=== PATIENT | male | born 1955 | race African-American/Black ===

== ENCOUNTER 2018-01-29 17:32 | Emergency (ER) | payer MEDICARE ==
[~2018-01-29] VITALS: Ht 167.6 cm; Wt 77.0 kg
[~2018-01-29 17:32] MED LIST: ASPIRIN 81 MG; CINACALCET 30 MG; CLONIDINE 0.2 MG; GLIP5TAB12; LISINOPRIL 40 MG; METOPROLOL 50 MG; MINOXIDIL 2.5 MG; RENAL; SEVELAMER CARBONATE 800 MG
[2018-01-29] MEDS ORDERED: HYDROCODONE/ACETAMINOPHEN 5/325MG TABLET PO ONE (18:15)
[2018-01-29] MEDS ORDERED: CEFTRIAXONE SODIUM 250 MG/VIAL IM ONE (18:15)
[2018-01-29] MEDS ORDERED: AZITHROMYCIN 500 MG TABLET PO ONE (18:15)
[2018-01-29] MEDS ORDERED: IBUPROFEN 800MG TABLET PO ONE (18:15)
[2018-01-29] MEDS ORDERED: LIDOCAINE HCL 1% 20ML VIAL (Pyxis) INJ INFIL ONE (18:30)
[2018-01-29] MEDS ORDERED: LIDOCAINE HCL/PF 1% 10 MG/ML 5ML VIAL IJ ONE (18:45)
[2018-01-29 21:31] VITALS: BP 122/65
== END 2018-01-29 21:44 | disposition home or self-care (01) ==
LOC: ER 17:32
DX: N45.1 Epididymitis (principal); N45.2 Orchitis; N43.3 Hydrocele, unspecified; E11.22 Type 2 diabetes mellitus with diabetic chronic kidney disease; I12.0 Hypertensive chronic kidney disease with stage 5 chronic kidney disease or end stage renal disease; N18.6 End stage renal disease; Z99.2 Dependence on renal dialysis
CPT/HCPCS: 76870; 93976; 96372; 99284; J0696; J3490

== ENCOUNTER → 2019-02-18 | Outpatient (CLI) | payer MEDICARE, OTHER | END | disposition home or self-care (01) | LOC: RAD 12:37 | DX: M25.521 Pain in right elbow (principal); R60.9 Edema, unspecified | CPT/HCPCS: 73080 ==

== ENCOUNTER 2021-12-16 17:10 | Inpatient (IN) | payer MEDICARE, OTHER ==
[~2021-12-16] VITALS: Ht 167.6 cm; Wt 69.4 kg
[2021-12-16] MEDS: CLONIDINE 0.2MG TABLET PO SCH (01:25)
[~2021-12-16 17:10] MED LIST changes: -ASPIRIN 81 MG; +ASPIRIN 81 MG PO; -CINACALCET 30 MG; +CINACALCET 30 MG PO; -CLONIDINE 0.2 MG; +CLONIDINE 0.2 MG PO; -GLIP5TAB12; +GLIP5TAB12 PO; -LISINOPRIL 40 MG; +LISINOPRIL 40 MG PO; -METOPROLOL 50 MG; +METOPROLOL 50 MG PO; -MINOXIDIL 2.5 MG; +MINOXIDIL 2.5 MG PO; -RENAL; -SEVELAMER CARBONATE 800 MG; +SEVELAMER CARBONATE 800 MG PO
[2021-12-16] MEDS ORDERED: HYDRALAZINE 20MG/ML VIAL IV ONE (18:00)
[2021-12-16] MEDS ORDERED: FUROSEMIDE 40MG/4ML VIAL IV ONE (18:00)
[2021-12-16] MEDS ORDERED: NITROGLYCERIN OINT 1GM/INCH UDPKT TD ONE (18:00)
[2021-12-16 18:26] LABS: BG BASE EXCESS 8.1 mmol/L (-2.0-2.0); BG CARBOXYHEMOGLOBIN 0.9 % (0.5-1.5); BG FRACTION INSPIRED OXYGEN 40; BG HCO3 ACT 31.6 mmol/L (22.0-26.0); BG OXYHEMOGLOBIN 97.1 % (94.0-97.0); BG PCO2 39.8 mmHg (35.0-45.0); BG PH 7.518 (7.350-7.450); BG PO2 109.3 mmHg (75.0-100.0); BG SAMPLE SITE RIGHT RADIAL; BG TOTAL HEMOGLOBIN 9.1 g/dL (12.0-18.0); BG VENT MODE NASAL CANNULA
[2021-12-16 18:41] LABS: HEMATOCRIT. 25.5 % (42.0-52.0); HEMOGLOBIN. 8.5 g/dL (14.0-18.0); MEAN CORPUSCULAR HEMOGLOBIN 27.4 pg (28.0-32.0); MEAN CORPUSCULAR VOLUME 81.9 fL (80.0-94.0); MEAN PLATELET VOLUME 9.7 fl (7.4-10.4); PLATELET 174 x1000/uL (130-400); RED BLOOD CELL COUNT 3.11 mill/uL (4.7-6.1); RED CELL DISTRIBUTION WIDTH 16.8 % (11.6-14.6)
[2021-12-16 18:53] LABS: CHLORIDE 98 mEq/L (98-107)
[2021-12-16 18:57] LABS: PLATELET ESTIMATE NORMAL
[2021-12-16] MEDS ORDERED: ACETAMINOPHEN 325MG TABLET PO PRN (19:00)
[2021-12-16] MEDS ORDERED: IPRATROPIUM/ALBUTEROL 0.5-3(2.5)MG/3ML NEB NEB PRN (19:00)
[2021-12-16] MEDS ORDERED: METHYLPREDNISOLONE SOD SUCC 125 MG/2 ML VIAL IV SCH (19:00)
[2021-12-16] MEDS ORDERED: ONDANSETRON HCL 4MG/2ML INJ IV PRN (19:00)
[2021-12-16] MEDS ORDERED: MORPHINE SULFATE 2 MG/ML CPJ (NOT FOR IM USE) IV PRN (19:00)
[2021-12-16] MEDS ORDERED: NALOXONE HCL 0.4MG/ML VIAL IV PRN (19:15)
[2021-12-16 19:48] LABS: HEPATITIS B SURFACE ANTIGEN NEGATIVE
[2021-12-16] MEDS: METOPROLOL TARTRATE 25MG TABLET PO SCH (20:10)
[2021-12-16] MEDS: METHYLPREDNISOLONE SOD SUCC 125 MG/2 ML VIAL IV SCH (20:11)
[2021-12-16] MEDS: MINOXIDIL 2.5MG TABLET PO SCH (20:34)
[2021-12-16] MEDS: LISINOPRIL 40MG TABLET PO SCH (20:43)
[2021-12-16] MEDS ORDERED: CEFTRIAXONE 1 G PREMIX 50 ML IV NR (22:00)
[2021-12-17] VITALS (9 sets, daily range): BP systolic 132–192; BP diastolic 56–100
[2021-12-17] MEDS: METHYLPREDNISOLONE SOD SUCC 125 MG/2 ML VIAL IV SCH ×2 (03:42→08:51)
[2021-12-17 05:33] LABS: HEMATOCRIT. 28.4 % (42.0-52.0); HEMOGLOBIN. 9.4 g/dL (14.0-18.0); MEAN CORPUSCULAR HEMOGLOBIN 27.1 pg (28.0-32.0); MEAN CORPUSCULAR VOLUME 82.4 fL (80.0-94.0); MEAN PLATELET VOLUME 10.4 fl (7.4-10.4); PLATELET 180 x1000/uL (130-400); RED BLOOD CELL COUNT 3.45 mill/uL (4.7-6.1)
[2021-12-17] MEDS: CLONIDINE 0.2MG TABLET PO SCH ×3 (06:00→21:24)
[2021-12-17] MEDS: CLONIDINE 0.1MG TABLET PO PRN ×3 (06:22→13:57)
[2021-12-17 08:46] LABS: BG BASE EXCESS 1.7 mmol/L (-2.0-2.0); BG CARBOXYHEMOGLOBIN 0.3 % (0.5-1.5); BG DEOXYHEMOGLOBIN 1.5 % (0.0-5.0); BG FRACTION INSPIRED OXYGEN 50; BG HCO3 ACT 25.3 mmol/L (22.0-26.0); BG METHEMOGLOBIN 0.3 % (0.0-1.5); BG OXYGEN SATURATION 98.5 % (92.0-98.5); BG OXYHEMOGLOBIN 97.9 % (94.0-97.0); BG PCO2 35.7 mmHg (35.0-45.0); BG PH 7.468 (7.350-7.450); BG PO2 116.4 mmHg (75.0-100.0); BG SAMPLE SITE RIGHT RADIAL; BG TOTAL HEMOGLOBIN 9.8 g/dL (12.0-18.0); BG VENT MODE MASK - SIMPLE
[2021-12-17] MEDS: FOLIC ACID/VITAMIN B COMP W-C TABLET PO SCH (08:51)
[2021-12-17] MEDS: LISINOPRIL 40MG TABLET PO SCH ×2 (08:51→17:23)
[2021-12-17] MEDS: SEVELAMER CARBONATE 800 MG TABLET PO SCH ×3 (08:51→17:23)
[2021-12-17] MEDS: GLIPIZIDE 5MG TABLET PO SCH (08:52)
[2021-12-17] MEDS: CINACALCET HCL 60MG TABLET PO SCH (08:52)
[2021-12-17] MEDS: METOPROLOL TARTRATE 25MG TABLET PO SCH ×2 (08:52→21:23)
[2021-12-17] MEDS: MINOXIDIL 2.5MG TABLET PO SCH ×2 (08:53→21:23)
[2021-12-17 09:12] LABS: PLATELET ESTIMATE NORMAL
[2021-12-17] MEDS ORDERED: HYDRALAZINE 20MG/ML VIAL IV PRN (10:15)
[2021-12-17 12:13] LABS: T4 FREE 1.29 ng/dL (0.76-1.46)
[2021-12-17] MEDS ORDERED: METHYLPREDNISOLONE SOD SUCC 125 MG/2 ML VIAL IV SCH (18:00)
[2021-12-17] MEDS: HYDRALAZINE HCL 25MG TABLET PO SCH (21:23)
[2021-12-17] MEDS: CEFTRIAXONE 1,000 MG in DEXTROSE 5% WATER 50 ML IV SCH (21:24)
[2021-12-17 23:22] LABS: CREATINE KINASE MB FRACTION 2.2 ng/mL (0.5-3.6)
[2021-12-18] VITALS (12 sets, daily range): BP systolic 108–176; BP diastolic 51–91
[2021-12-18] MEDS: CLONIDINE 0.2MG TABLET PO SCH ×3 (05:11→22:05)
[2021-12-18 05:23] LABS: BASOPHILS % 0.2 % (0.0-2.0); HEMATOCRIT. 24.3 % (42.0-52.0); HEMOGLOBIN. 7.9 g/dL (14.0-18.0); LYMPHOCYTES % 8.4 % (20.0-50.0); MEAN CORPUSCULAR HEMOGLOBIN 26.4 pg (28.0-32.0); MEAN CORPUSCULAR VOLUME 80.9 fL (80.0-94.0); MEAN PLATELET VOLUME 10.9 fl (7.4-10.4); MONOCYTES % 7.6 % (2.0-8.0); NEUTROPHILS % 83.8 % (40.0-76.0); PLATELET 166 x1000/uL (130-400); RED CELL DISTRIBUTION WIDTH 16.8 % (11.6-14.6)
[2021-12-18 06:14] LABS: CREATINE KINASE MB FRACTION 1.6 ng/mL (0.5-3.6)
[2021-12-18] MEDS: SEVELAMER CARBONATE 800 MG TABLET PO SCH ×3 (08:53→17:56)
[2021-12-18] MEDS: CINACALCET HCL 60MG TABLET PO SCH (08:54)
[2021-12-18] MEDS: MINOXIDIL 2.5MG TABLET PO SCH ×3 (08:58→22:07)
[2021-12-18] MEDS: METOPROLOL TARTRATE 25MG TABLET PO SCH ×2 (08:58→22:06)
[2021-12-18] MEDS: HYDRALAZINE HCL 25MG TABLET PO SCH ×3 (08:58→22:06)
[2021-12-18] MEDS: LISINOPRIL 40MG TABLET PO SCH ×2 (08:59→17:00)
[2021-12-18] MEDS: FOLIC ACID/VITAMIN B COMP W-C TABLET PO SCH (09:03)
[2021-12-18] MEDS: GLIPIZIDE 5MG TABLET PO SCH (09:03)
[2021-12-18] MEDS ORDERED: IOHEXOL-350 100 ML BOTTLE ONE (10:14)
[2021-12-18] MEDS ORDERED: EPOETIN ALFA-EPBX 10,000 UNIT/ML VIAL SUBCUT SCH (21:00)
[2021-12-18] MEDS: CEFTRIAXONE 1,000 MG in DEXTROSE 5% WATER 50 ML IV SCH (22:04)
[2021-12-19] VITALS (16 sets, daily range): BP systolic 103–149; BP diastolic 43–77
[2021-12-19] MEDS: CLONIDINE 0.2MG TABLET PO SCH (05:51)
[2021-12-19] MEDS ORDERED: LIDOCAINE HCL 1% 20ML VIAL (Pyxis) INJ ONE (06:35)
[2021-12-19] MEDS ORDERED: MIDAZOLAM HCL 2 MG/2 ML VIAL ONE (06:35)
[2021-12-19] MEDS ORDERED: FENTANYL CITRATE/PF 50MCG/ML 2ML VIAL ONE (06:35)
[2021-12-19] MEDS ORDERED: IODIXANOL 320MG/ML 100 ML BOTTLE IV ONE (06:35)
[2021-12-19] MEDS ORDERED: NICARDIPINE 100MCG/ML 10ML VIAL (CATH LAB) IV ONE (08:27)
[2021-12-19] MEDS ORDERED: NITROGLYCERIN 50MCG/ML 10ML VIAL (CATH LAB) IV ONE (08:27)
[2021-12-19] MEDS: HYDRALAZINE HCL 25MG TABLET PO SCH (08:54)
[2021-12-19] MEDS: CINACALCET HCL 60MG TABLET PO SCH (08:54)
[2021-12-19] MEDS: SEVELAMER CARBONATE 800 MG TABLET PO SCH ×2 (08:54→13:42)
[2021-12-19] MEDS: METOPROLOL TARTRATE 25MG TABLET PO SCH (08:55)
[2021-12-19] MEDS: GLIPIZIDE 5MG TABLET PO SCH (08:55)
[2021-12-19] MEDS: FOLIC ACID/VITAMIN B COMP W-C TABLET PO SCH (08:55)
[2021-12-19] MEDS: LISINOPRIL 40MG TABLET PO SCH (08:57)
[2021-12-19] MEDS: MINOXIDIL 2.5MG TABLET PO SCH (09:01)
[2021-12-19 13:17] LABS: HEMATOCRIT 29.1 % (42.0-52.0); HEMOGLOBIN 9.7 g/dL (14.0-18.0)
== END 2021-12-19 16:40 | disposition home or self-care (01) | DRG 189 ==
LOC: ER 17:10 → MICUSO 20:51 → EDBEDREQ 20:54 → EDBEDREQTM 20:54 → ENRESERV 22:39 → CANRESERV 22:41 → ENRESERV 22:41 → 5EST 12-17 03:08
PROVIDERS: ADMIT Internal Medicine Nephrology; ATTEND Internal Medicine Nephrology
PROC: 5A1D70Z Performance of Urinary Filtration, Intermittent, Less than 6 Hours Per Day (ICD-10-PCS; 2021-12-16)
PROC: 5A09357 Assistance with Respiratory Ventilation, Less than 24 Consecutive Hours, Continuous Positive Airway Pressure (ICD-10-PCS; 2021-12-16)
PROC: 5A1D70Z Performance of Urinary Filtration, Intermittent, Less than 6 Hours Per Day (ICD-10-PCS; 2021-12-18)
PROC: 4A023N7 Measurement of Cardiac Sampling and Pressure, Left Heart, Percutaneous Approach (ICD-10-PCS; principal; 2021-12-19)
PROC: B2111ZZ Fluoroscopy of Multiple Coronary Arteries using Low Osmolar Contrast (ICD-10-PCS; 2021-12-19)
PROC: B2151ZZ Fluoroscopy of Left Heart using Low Osmolar Contrast (ICD-10-PCS; 2021-12-19)
DX: J96.01 Acute respiratory failure with hypoxia (principal); N18.6 End stage renal disease; J81.1 Chronic pulmonary edema; I13.11 Hypertensive heart and chronic kidney disease without heart failure, with stage 5 chronic kidney disease, or end stage renal disease; E87.70 Fluid overload, unspecified; D64.9 Anemia, unspecified; E78.5 Hyperlipidemia, unspecified; Z60.2 Problems related to living alone; Z20.822 Contact with and (suspected) exposure to COVID-19; E11.22 Type 2 diabetes mellitus with diabetic chronic kidney disease; Z86.16 Personal history of COVID-19; Z99.2 Dependence on renal dialysis; Z79.82 Long term (current) use of aspirin; Z79.84 Long term (current) use of oral hypoglycemic drugs; Z79.899 Other long term (current) drug therapy; Z99.81 Dependence on supplemental oxygen
CPT/HCPCS: 36415; 36600; 71045; 71275; 80048; 80053; 80061; 82270; 82375; 82550; 82553; 82805; 82962; 83036; 83880; 84439; 84443; 84484; 85014; 85018; 85025; 85379; 86705; 86709; 86803; 87070; 87340; 87426; 93005; 93306; 93458; 93970; 94660; 99285; C1760; C1769; C1887; C1893; J0360; J0696; J0885; J1644; J1940; J2250; J2930; J3010; J3490; J7060; Q9967

== ENCOUNTER 2022-09-14 10:07 | Inpatient (IN) | payer BC, MEDICARE ==
[~2022-09-14] VITALS: Ht 165.1 cm; Wt 74.6 kg
[~2022-09-14 10:07] MED LIST changes: -ASPIRIN 81 MG PO
[2022-09-14 11:21] LABS: EOSINOPHILS % 0.3 % (0.0-5.0); HEMATOCRIT. 31.4 % (42.0-52.0); HEMOGLOBIN. 9.9 g/dL (14.0-18.0); MEAN CORPUSCULAR HEMOGLOBIN 26.4 pg (28.0-32.0); MEAN CORPUSCULAR VOLUME 83.7 fL (80.0-94.0); MONOCYTES % 3.6 % (2.0-8.0); NEUTROPHILS % 88.1 % (40.0-76.0); RED BLOOD CELL COUNT 3.75 mill/uL (4.7-6.1); RED CELL DISTRIBUTION WIDTH 20.6 % (11.6-14.6)
[2022-09-14 11:25] LABS: BG BASE EXCESS 3.6 mmol/L (-2.0-2.0); BG CARBOXYHEMOGLOBIN 1.2 % (0.5-1.5); BG DEOXYHEMOGLOBIN 5.8 % (0.0-5.0); BG METHEMOGLOBIN 0.3 % (0.0-1.5); BG OXYGEN SATURATION 94.1 % (92.0-98.5); BG OXYHEMOGLOBIN 92.7 % (94.0-97.0); BG PCO2 41.6 mmHg (35.0-45.0); BG PH 7.446 (7.350-7.450); BG PO2 72.8 mmHg (75.0-100.0); BG SAMPLE SITE RIGHT RADIAL; BG VENT MODE NASAL CANNULA
[2022-09-14 12:02] LABS: CHLORIDE 97 mEq/L (98-107)
[2022-09-14 12:29] LABS: MEAN PLATELET VOLUME 11.7 fl (7.4-10.4); PLATELET 116 x1000/uL (130-400)
[2022-09-14] MEDS ORDERED: CLONIDINE 0.1MG TABLET PO PRN (13:45)
[2022-09-14] MEDS ORDERED: ONDANSETRON HCL 4MG/2ML INJ IV PRN (13:45)
[2022-09-14] MEDS ORDERED: DOCUSATE SODIUM 100MG CAPSULE PO PRN (13:45)
[2022-09-14] MEDS ORDERED: DIPHENHYDRAMINE 50MG/ML VIAL IV PRN (13:45)
[2022-09-14 16:00] VITALS: BP 164/92
[2022-09-14 16:56] LABS: HEPATITIS B SURFACE ANTIGEN NEGATIVE
[2022-09-14] MEDS: ACETAMINOPHEN 325MG TABLET PO PRN (17:32)
[2022-09-14 18:48] VITALS: BP 157/82
[2022-09-14 20:00] VITALS: BP 143/73
[2022-09-15] VITALS (14 sets, daily range): BP systolic 123–181; BP diastolic 68–104
[2022-09-15 07:26] LABS: BASOPHILS % 0.3 % (0.0-2.0); EOSINOPHILS % 0.3 % (0.0-5.0); HEMATOCRIT. 29.6 % (42.0-52.0); HEMOGLOBIN. 9.7 g/dL (14.0-18.0); LYMPHOCYTES % 10.9 % (20.0-50.0); MEAN CORPUSCULAR HEMOGLOBIN 27.1 pg (28.0-32.0); MONOCYTES % 5.6 % (2.0-8.0); NEUTROPHILS % 82.9 % (40.0-76.0); RED BLOOD CELL COUNT 3.57 mill/uL (4.7-6.1); RED CELL DISTRIBUTION WIDTH 20.1 % (11.6-14.6)
[2022-09-15] MEDS ORDERED: DEXTROSE 50% WATER 50ML SYRINGE IV PRN (08:30)
[2022-09-15] MEDS ORDERED: CEFTRIAXONE 1 G PREMIX 50 ML IV SCH (08:30)
[2022-09-15 08:37] LABS: PLATELET 101 x1000/uL (130-400)
[2022-09-15 08:38] LABS: MEAN PLATELET VOLUME 11.9 fl (7.4-10.4)
[2022-09-15] MEDS: CEFTRIAXONE 1,000 MG in DEXTROSE 5% WATER 50 ML IV SCH (10:20)
[2022-09-15] MEDS: CINACALCET HCL 30MG TABLET PO SCH (10:20)
[2022-09-15] MEDS: GLIPIZIDE 5MG TABLET PO SCH (10:20)
[2022-09-15] MEDS: SEVELAMER CARBONATE 800 MG TABLET PO SCH ×2 (12:26→17:30)
[2022-09-15] MEDS: METOPROLOL SUCCINATE 50MG ER TABLET PO SCH (12:27)
[2022-09-15] MEDS: CLONIDINE 0.2MG TABLET PO SCH ×2 (12:27→17:31)
[2022-09-15] MEDS: INSULIN LISPRO 100 UNITS/ML SUBCUT SCH ×3 (12:35→21:00)
[2022-09-15] MEDS: BLOOD SUGAR DIAGNOSTIC STRIP TEST SCH ×3 (12:35→21:00)
[2022-09-15 20:36] LABS: CLARITY URINE CLOUDY (CLEAR); KETONES URINE NEGATIVE (NEGATIVE); LEUKOCYTE ESTERASE URINE 2+ (NEGATIVE); NITRITE URINE NEGATIVE (NEGATIVE); OCCULT BLOOD URINE 3+ (NEGATIVE); PH URINE 7.5 (4.5-8.0); PROTEIN URINE 4+ (NEGATIVE); SPECIFIC GRAVITY URINE 1.017 (1.005-1.030); UROBILINOGEN URINE 0.2 E.U./dL (0.2-1.0)
[2022-09-15 20:42] LABS: COLOR URINE BLOODY (YELLOW)
[2022-09-15] MEDS ORDERED: EPOETIN ALFA-EPBX 4,000 UNIT/ML VIAL SUBCUT SCH (21:00)
[2022-09-16] VITALS: BP 133/75
[2022-09-16] MEDS: ACETAMINOPHEN 325MG TABLET PO PRN (06:29)
[2022-09-16] MEDS: INSULIN LISPRO 100 UNITS/ML SUBCUT SCH ×4 (07:42→21:00)
[2022-09-16] MEDS: BLOOD SUGAR DIAGNOSTIC STRIP TEST SCH ×4 (07:42→21:00)
[2022-09-16] MEDS: SEVELAMER CARBONATE 800 MG TABLET PO SCH ×3 (08:26→18:24)
[2022-09-16] MEDS: GLIPIZIDE 5MG TABLET PO SCH (08:26)
[2022-09-16 08:27] VITALS: BP 138/73
[2022-09-16] MEDS: METOPROLOL SUCCINATE 50MG ER TABLET PO SCH (08:28)
[2022-09-16] MEDS: CEFTRIAXONE 1,000 MG in DEXTROSE 5% WATER 50 ML IV SCH (10:47)
[2022-09-16] MEDS: CINACALCET HCL 30MG TABLET PO SCH (10:47)
[2022-09-16 12:00] VITALS: BP 139/74
[2022-09-16 16:00] VITALS: BP 136/75
[2022-09-16] MEDS: CLONIDINE 0.2MG TABLET PO SCH (17:00)
[2022-09-16 20:00] VITALS: BP 136/73
[2022-09-16 20:27] LABS: INR 1.1; PROTHROMBIN TIME 11.4 sec (9.6-11.0)
[2022-09-17] VITALS (15 sets, daily range): BP systolic 132–150; BP diastolic 67–83
[2022-09-17] MEDS: INSULIN LISPRO 100 UNITS/ML SUBCUT SCH ×4 (07:50→21:00)
[2022-09-17 07:58] LABS: BASOPHILS % 0.4 % (0.0-2.0); EOSINOPHILS % 0.7 % (0.0-5.0); HEMATOCRIT. 31.8 % (42.0-52.0); LYMPHOCYTES % 20.3 % (20.0-50.0); MEAN CORPUSCULAR HEMOGLOBIN 26.4 pg (28.0-32.0); MEAN PLATELET VOLUME 12.3 fl (7.4-10.4); NEUTROPHILS % 72.6 % (40.0-76.0); PLATELET 136 x1000/uL (130-400); RED BLOOD CELL COUNT 3.79 mill/uL (4.7-6.1); RED CELL DISTRIBUTION WIDTH 20.1 % (11.6-14.6)
[2022-09-17] MEDS: BLOOD SUGAR DIAGNOSTIC STRIP TEST SCH ×4 (08:12→21:00)
[2022-09-17] MEDS: GLIPIZIDE 5MG TABLET PO SCH (08:13)
[2022-09-17] MEDS: CLONIDINE 0.2MG TABLET PO SCH ×2 (08:13→17:00)
[2022-09-17] MEDS: CINACALCET HCL 30MG TABLET PO SCH (08:34)
[2022-09-17] MEDS: SEVELAMER CARBONATE 800 MG TABLET PO SCH ×2 (08:34→18:57)
[2022-09-17] MEDS: METOPROLOL SUCCINATE 50MG ER TABLET PO SCH (08:36)
[2022-09-17] MEDS: DEXT 5%/0.9% NACL 1,000 ML IV SCH (08:37)
[2022-09-17] MEDS: CEFTRIAXONE 1,000 MG in DEXTROSE 5% WATER 50 ML IV SCH (11:25)
[2022-09-17] MEDS: ACETAMINOPHEN 325MG TABLET PO PRN (11:29)
[2022-09-17] MEDS ORDERED: DEXAMETHASONE 4MG/ML 1ML VIAL ONE ×2 (13:23→13:30)
[2022-09-17] MEDS ORDERED: ONDANSETRON HCL 4MG/2ML INJ ONE (13:23)
[2022-09-17] MEDS ORDERED: LIDOCAINE HCL 1% 10 MG/ML 10ML VIAL ONE ×2 (13:23→13:31)
[2022-09-17] MEDS ORDERED: PROPOFOL 200MG/20ML VIAL IV ONE (13:31)
[2022-09-17] MEDS ORDERED: MIDAZOLAM HCL 2 MG/2 ML VIAL ONE (13:31)
[2022-09-17] MEDS ORDERED: FENTANYL CITRATE/PF 50MCG/ML 2ML VIAL ONE (13:32)
[2022-09-17] MEDS ORDERED: BUPIVACAINE HCL/PF 0.5% (5MG/ML) 30ML ONE (13:51)
[2022-09-17] MEDS ORDERED: LABETALOL 5MG/ML SYR 20 MG/4 ML SYRINGE IV PRN (14:15)
[2022-09-17] MEDS ORDERED: ONDANSETRON HCL 4MG/2ML INJ IV PRN (14:15)
[2022-09-17] MEDS ORDERED: ACETAMINOPHEN WITH CODEINE 300/30MG TABLET PO PRN (14:15)
[2022-09-17] MEDS ORDERED: HYDROMORPHONE HCL/PF 2MG/ML CPJ IV PRN (14:15)
[2022-09-17] MEDS ORDERED: MEPERIDINE HCL/PF 25MG/ML CPJ IV PRN (14:15)
[2022-09-17] MEDS ORDERED: NALOXONE HCL 0.4MG/ML VIAL IV PRN (14:30)
[2022-09-18] VITALS: BP 147/71
[2022-09-18 01:31] LABS: HEMATOCRIT 31.4 % (42.0-52.0); MEAN CORPUSCULAR HEMOGLOBIN 26.6 pg (28.0-32.0); MEAN CORPUSCULAR VOLUME 83.3 fL (80.0-94.0); PLATELET 151 x1000/uL (130-400); RED BLOOD CELL COUNT 3.77 mill/uL (4.7-6.1); RED CELL DISTRIBUTION WIDTH 19.8 % (11.6-14.6)
[2022-09-18 01:35] LABS: INR 1.1; PROTHROMBIN TIME 11.4 sec (9.6-11.0)
[2022-09-18 07:33] LABS: BASOPHILS % 0.4 % (0.0-2.0); EOSINOPHILS % 1.2 % (0.0-5.0); HEMOGLOBIN. 8.1 g/dL (14.0-18.0); MEAN CORPUSCULAR HEMOGLOBIN 26.8 pg (28.0-32.0); MEAN CORPUSCULAR VOLUME 83.1 fL (80.0-94.0); MONOCYTES % 8.1 % (2.0-8.0); NEUTROPHILS % 76.3 % (40.0-76.0); RED BLOOD CELL COUNT 3.01 mill/uL (4.7-6.1); RED CELL DISTRIBUTION WIDTH 19.6 % (11.6-14.6)
[2022-09-18] MEDS: INSULIN LISPRO 100 UNITS/ML SUBCUT SCH ×4 (07:50→20:52)
[2022-09-18 08:00] VITALS: BP 136/69
[2022-09-18] MEDS: BLOOD SUGAR DIAGNOSTIC STRIP TEST SCH ×4 (08:01→20:30)
[2022-09-18] MEDS: SEVELAMER CARBONATE 800 MG TABLET PO SCH ×3 (08:23→18:21)
[2022-09-18] MEDS: GLIPIZIDE 5MG TABLET PO SCH (08:23)
[2022-09-18] MEDS: CINACALCET HCL 30MG TABLET PO SCH (08:23)
[2022-09-18] MEDS: CLONIDINE 0.2MG TABLET PO SCH ×2 (08:24→18:21)
[2022-09-18] MEDS: METOPROLOL SUCCINATE 50MG ER TABLET PO SCH (08:25)
[2022-09-18] MEDS: CEFTRIAXONE 1,000 MG in DEXTROSE 5% WATER 50 ML IV SCH (10:06)
[2022-09-18] MEDS: DEXT 5%/0.9% NACL 1,000 ML IV SCH (10:09)
[2022-09-18 12:00] VITALS: BP 102/49
[2022-09-18 12:05] LABS: PLATELET ESTIMATE DECREASED
[2022-09-18 12:07] LABS: MEAN PLATELET VOLUME 11.8 fl (7.4-10.4); PLATELET 105 x1000/uL (130-400)
[2022-09-18 16:00] VITALS: BP 133/65
[2022-09-18 20:00] VITALS: BP 117/58
[2022-09-19] VITALS (11 sets, daily range): BP systolic 130–151; BP diastolic 51–77
[2022-09-19] MEDS: BLOOD SUGAR DIAGNOSTIC STRIP TEST SCH ×2 (06:47→12:47)
[2022-09-19 07:23] LABS: BASOPHILS % 0.6 % (0.0-2.0); EOSINOPHILS % 1.4 % (0.0-5.0); HEMATOCRIT. 24.6 % (42.0-52.0); HEMOGLOBIN. 7.9 g/dL (14.0-18.0); LYMPHOCYTES % 13.8 % (20.0-50.0); MEAN CORPUSCULAR HEMOGLOBIN 26.7 pg (28.0-32.0); MEAN CORPUSCULAR VOLUME 82.9 fL (80.0-94.0); MONOCYTES % 7.3 % (2.0-8.0); NEUTROPHILS % 76.9 % (40.0-76.0); RED BLOOD CELL COUNT 2.97 mill/uL (4.7-6.1); RED CELL DISTRIBUTION WIDTH 19.4 % (11.6-14.6)
[2022-09-19] MEDS: INSULIN LISPRO 100 UNITS/ML SUBCUT SCH ×2 (07:50→12:47)
[2022-09-19] MEDS: SEVELAMER CARBONATE 800 MG TABLET PO SCH ×2 (08:30→13:01)
[2022-09-19] MEDS: CLONIDINE 0.2MG TABLET PO SCH (08:31)
[2022-09-19] MEDS: GLIPIZIDE 5MG TABLET PO SCH (08:31)
[2022-09-19] MEDS: METOPROLOL SUCCINATE 50MG ER TABLET PO SCH (08:31)
[2022-09-19] MEDS: CINACALCET HCL 30MG TABLET PO SCH (08:31)
[2022-09-19 10:34] LABS: PLATELET 115 x1000/uL (130-400)
[2022-09-19] MEDS: CEFTRIAXONE 1,000 MG in DEXTROSE 5% WATER 50 ML IV SCH (11:49)
== END 2022-09-19 15:28 | disposition home health service (06) | DRG 570 ==
LOC: ER 10:07 → SUPCPDRO 13:38 → 6EST 15:02 → EDBEDREQ 15:03 → EDBEDREQTM 15:03 → ENRESERV 15:28
PROVIDERS: ADMIT Nurse Practitioner Family; ATTEND Nurse Practitioner Family
PROC: 5A1D70Z Performance of Urinary Filtration, Intermittent, Less than 6 Hours Per Day (ICD-10-PCS; 2022-09-14)
PROC: 0JB90ZZ Excision of Buttock Subcutaneous Tissue and Fascia, Open Approach (ICD-10-PCS; principal; 2022-09-17)
PROC: 5A1D70Z Performance of Urinary Filtration, Intermittent, Less than 6 Hours Per Day (ICD-10-PCS; 2022-09-17)
PROC: 5A1D70Z Performance of Urinary Filtration, Intermittent, Less than 6 Hours Per Day (ICD-10-PCS; 2022-09-19)
DX: L02.31 Cutaneous abscess of buttock (principal); N18.6 End stage renal disease; I13.11 Hypertensive heart and chronic kidney disease without heart failure, with stage 5 chronic kidney disease, or end stage renal disease; N28.89 Other specified disorders of kidney and ureter; D64.9 Anemia, unspecified; E11.22 Type 2 diabetes mellitus with diabetic chronic kidney disease; Z20.822 Contact with and (suspected) exposure to COVID-19; Z99.2 Dependence on renal dialysis; E11.319 Type 2 diabetes mellitus with unspecified diabetic retinopathy without macular edema; R31.0 Gross hematuria; Z79.899 Other long term (current) drug therapy
CPT/HCPCS: 36415; 36600; 71045; 72195; 74176; 74181; 76770; 80048; 80053; 81003; 82375; 82805; 82962; 83036; 83605; 83880; 84484; 85025; 85027; 86705; 86709; 86803; 87070; 87075; 87340; 87426; 90935; 93005; 93970; 99285; C1893; J0696; J0885; J1100; J1170; J1200; J1815; J2250; J2405; J2704; J3010; J3490; J7042; J7060